=== PATIENT | female | born 2000 | race Caucasian/White ===

== ENCOUNTER 2023-07-12 17:18 | Emergency (ER) | payer MEDICAID ==
[~2023-07-12] VITALS: Ht 165.1 cm; Wt 100.0 kg
[2023-07-12 17:26] VITALS: O2SAT 95
[2023-07-12] MEDS ORDERED: GABA-529 MT (20:55)
[2023-07-12] MEDS ORDERED: IBUP-1525 MT (20:55)
[2023-07-12] MEDS ORDERED: TOPUD MT (20:55)
[2023-07-12 21:09] VITALS: BP 136/62; PULSE 76; RESP 12; TEMP 98.1
== END 2023-07-12 21:11 | disposition home or self-care (01) ==
LOC: ER 17:18
DX: E11.40 Type 2 diabetes mellitus with diabetic neuropathy, unspecified (principal); Z98.890 Other specified postprocedural states
CPT/HCPCS: 99283